=== PATIENT | male | born 1965 | race Caucasian/White ===

== ENCOUNTER → 2020-10-22 | Outpatient (CLI) | payer OTHER ==
[~2020-10-22] MED LIST: LEVEMIR SUBQ; LOPID600 MG PO; NOVOLOG100 UNIT/M SUBQ; QUINU10 PD; TYLENOL325 MG PO; ZESTRIL10 MG PO
== END ==
LOC: SJCVCIMAG 10:27
PROVIDERS: ATTEND Internal Medicine
DX: I07.1 Rheumatic tricuspid insufficiency (principal); I11.9 Hypertensive heart disease without heart failure; R07.2 Precordial pain; E11.9 Type 2 diabetes mellitus without complications; E78.5 Hyperlipidemia, unspecified; R06.00 Dyspnea, unspecified; R00.0 Tachycardia, unspecified

== ENCOUNTER 2021-04-05 06:11 | Emergency (ER) | payer OTHER ==
[~2021-04-05] VITALS: Ht 180.3 cm; Wt 117.9 kg
[2021-04-05 08:15] VITALS: BP 143/88
== END 2021-04-05 08:16 | disposition home or self-care (01) ==
LOC: ER 06:11
DX: H16.001 Unspecified corneal ulcer, right eye (principal); H01.003 Unspecified blepharitis right eye, unspecified eyelid; H16.9 Unspecified keratitis; E11.9 Type 2 diabetes mellitus without complications; I10 Essential (primary) hypertension; Z79.4 Long term (current) use of insulin; Z79.899 Other long term (current) drug therapy